=== PATIENT | male | born 1960 | race Caucasian/White ===

== ENCOUNTER → 2023-05-14 | Outpatient (CLI) | payer SELFPAY ==
[~2023-05-14] MED LIST: BARIUM for suspension 96% w/w (Vanilla Silq Medium Density) PO ONE; BARIUM for suspension 98% w/w (Vanilla Silq High Density) PO ONE
--- NOTE | 2023-05-14 09:14 | Diagnostic Imaging Report ---
INDICATION: Choking episodes. TECHNIQUE: The patient ingested effervescent crystals as well as thin and thick barium and imaging of the esophagus was performed in multiple obliquities. A total of 52 seconds of fluoroscopic time was utilized. Reference air kerma was 34.7 mGy. FINDINGS: The preliminary radiograph of the chest is unremarkable. The esophagus has a smooth contour. No mass or stricture is identified. No hiatal hernia or gastroesophageal reflux was demonstrated. There is a questionable small diverticulum arising from the lower cervical esophagus. No other abnormalities are seen. IMPRESSION: Probable small lower cervical esophageal diverticulum. The study is otherwise unremarkable. Dictated by: Dictated on workstation # [id number]
== END ==
LOC: RAD 07:55
PROVIDERS: ATTEND Pediatrics
DX: R13.19 Other dysphagia (principal)
CPT/HCPCS: 74220